=== PATIENT | male | born 1955 | race Caucasian/White ===

== ENCOUNTER → 2024-06-07 | Day surgery (SDC) | payer MEDICARE, MEDICAID ==
[~2024-06-07] VITALS: Ht 180.3 cm; Wt 98.0 kg
[~2024-06-07] MED LIST: AMLO5TAB88 PO; ATOR10TA69 PO; BENZ0.5T3 PO; BUPIVACAINE HCL/PF 0.5% (5MG/ML) 10ML ONE; DONE-51 PO; FENTANYL CITRATE/PF 50MCG/ML 5ML VIAL ONE; FINA5TAB11 PO; GLYCOPYRROLATE 0.2 MG/ML 2ML VIAL IV PRN; GLYCOPYRROLATE 0.2 MG/ML 2ML VIAL ONE; HYDR50TA40 PO; HYDRALAZINE 20MG/ML VIAL IV PRN; HYDROMORPHONE HCL/PF 1MG/ML INJ IV PRN; LABETALOL 5MG/ML 4ML INJ IV PRN; LAMO100T65 PO; LIDOCAINE HCL 1% 20ML VIAL ONE; MEMA10TA20 PO; ONDANSETRON HCL 4MG/2ML INJ IV PRN; OXYB-52 PO; PANT40TA51 PO; PHENYLEPHRINE HCL 10MG/ML 1ML IV ONE; POLYMYXIN B SULFATE 500000 UNITS/VIAL ONE; PROP10TA10 PO; QUET50TA PO; ROCURONIUM BROMIDE 10MG/ML VIAL 5ML IV ONE; SKIN ADHESIVE 0.7 GM EA TOP ONE; SUGAMMADEX SODIUM 200MG/2ML VIAL IV ONE; TAMS-54 PO; VALP250C3 PO; VITA100012 PO
[2024-06-07] MEDS: LACTATED RINGERS 1,000 ML IV SCH (06:49)
[2024-06-07] MEDS: HYDROMORPHONE HCL/PF 1MG/ML INJ IV PRN (10:14)
[2024-06-07 10:44] VITALS: BP 151/79; PULSE 58; RESP 16
[2024-06-07] MEDS: MIDAZOLAM HCL 5 MG/5 ML VIAL IV PRN (10:44)
== END | disposition home or self-care (01) ==
LOC: OR 05:30
PROVIDERS: ATTEND Specialist
DX: K42.0 Umbilical hernia with obstruction, without gangrene (principal); I10 Essential (primary) hypertension; N40.0 Benign prostatic hyperplasia without lower urinary tract symptoms; E78.5 Hyperlipidemia, unspecified; G47.30 Sleep apnea, unspecified; N32.81 Overactive bladder; F20.9 Schizophrenia, unspecified; F03.90 Unspecified dementia, unspecified severity, without behavioral disturbance, psychotic disturbance, mood disturbance, and anxiety; F19.10 Other psychoactive substance abuse, uncomplicated; Z79.899 Other long term (current) drug therapy; Z86.73 Personal history of transient ischemic attack (TIA), and cerebral infarction without residual deficits; Z98.890 Other specified postprocedural states
CPT/HCPCS: 93005; 49594; 71045; J3010; J0665; J3490 ×4; J2250; J1171; C1781; J2371